=== PATIENT | female | born 2000 | race Caucasian/White ===

== ENCOUNTER 2022-10-15 10:24 | Emergency (ER) | payer MEDICAID, SELFPAY ==
--- NOTE | ~2022-10-15 | US_ITS ---
EXAMINATION: US appendix CLINICAL INFORMATION: Right lower quadrant pain COMPARISON: None TECHNIQUE: Transabdominal grayscale and color views of the right lower quadrant were obtained. FINDINGS: The appendix was not identified sonographically. No free fluid or right lower quadrant inflammatory changes. The right ovary measures 3.8 x 2.9 x 3.1 cm with arterial and venous flow present and is remarkable for a 3.4 x 2.6 x 2.4 cm simple unilocular right ovarian cyst. US/US appendix IMPRESSION: The appendix was not identified sonographically. No free fluid or right lower quadrant inflammatory changes identified. Consider further evaluation with contrast-enhanced CT abdomen pelvis. The right ovary is remarkable for a 3.4 cm simple unilocular right ovarian cyst, no follow-up imaging recommended.
[2022-10-15 10:32] VITALS: BP 123/70; PULSE 85; RESP 16; TEMP 36.9; O2SAT 100; BMI 35.4
[2022-10-15 10:47] VITALS: BP 124/73; PULSE 78; TEMP 37.1; O2SAT 100
--- NOTE | 2022-10-15 11:05 | ED_ITS ---
HPI - Abdominal Pain General Chief Complaint: Abdominal Pain Stated Complaint: r side pain Time Seen by Provider: 10/15/22 10:36 Source: patient Mode of arrival: ambulatory Limitations: no limitations History of Present Illness HPI narrative: 21-year-old female with a significant past medical history of Von Willebrand disease presents to the emergency department today with complaints of right- sided sharp pain beginning this morning. She states she felt pain in the RLQ of her abdomen and went into the bathroom to have a BM. She states she only passed gas as she no longer had the sensation to move her bowels. The pain worsened while sitting on the toilet and she felt as if she were going to pass out. She removed herself off the toilet and sat on the ground and the sensation passed. She denies any and feeling as if she was going to pass out. She is sexually active with one partner and uses a control patch. Her LMP was 3 weeks ago in August. She denies any known illness or sick contacts. She denies any vaginal bleeding or discharge, dysuria, or cloudy/odorous urine. She denies any nausea, vomiting, diarrhea, constipation, shortness of breath, chest pain, headache, or vision changes. MD elicited complaint: abdominal pain Pertinent past history: none Onset (ago): hour(s) Pain Consistency: intermittent Location: RLQ Severity: moderate Quality: sharp Radiation: none Migration to: no migration Exacerbating factors: nothing and movement Relieving factors: rest Associated symptoms: denies other symptoms Related Data Hx Last Menstrual Period: 3 weeks ago per patient Allergies Allergy/AdvReac Type Severity Reaction Status Date / Time NSAIDS (Non-Steroidal AdvReac Unknown Verified 10/15/22 10:31 Anti-Inflamma Review of Systems Review of Systems In addition to documented HPI above, the additional ROS was obtained: Constitutional: No Weight loss, No Fever, No Chills ENT/Mouth: No Ear Pain, No Nasal Congestion, No Sinus Pain, No Hoarseness, No sore throat, No Rhinorrhea, No Swallowing Difficulty Cardiovascular: No Chest Pain, No SOB Respiratory: No Cough, No Sputum, No Wheezing Gastrointestinal: No Nausea, No Vomiting, No Diarrhea, No Constipation Genitourinary: No Dysuria, No Urinary Frequency, No Hematuria, No Urinary Incontinence/retention, No Urgency, No Flank Pain Musculoskeletal: No joint pain, No Myalgias, No Joint Swelling Skin: No Skin Lesions, No rash Neuro: No Weakness, No Numbness, No Paresthesias Yes all other systems are reviewed and are negative [facility] Past Medical History Attestation statement: The following information was validated with the patient. Source: old records reviewed and obtained from family : 1 Para: 1 Total number of abortions (spontaneous and elective): 0 Hx Last Menstrual Period: 3 weeks ago per patient Social History Social History Smoked in Last 30 Days: No Use of substances other than those prescribed or required for medical reasons: No Advance Directives: No Advance Directives Information Provided: No Patient : No Physical Exam ED Vital Signs: Vital Signs - 24 hr 10/15/22 10:32 10/15/22 10:47 10/15/22 13:28 Temperature 98.4 F 98.7 F 98.7 F Pulse Rate 85 78 80 Respiratory Rate 16 Blood Pressure 123/70 124/73 128/77 Pulse Oximetry 100 100 100 Oxygen Delivery Method Room Air Room Air Room Air BMI result Body Mass Index 35.4 Nursing notes and vital signs reviewed. GENERAL APPEARANCE: A&0 x 4, generally well appearing, no acute distress HENMT: Normal to inspection, atraumatic, face symmetrical. Normal external ears, nose, and oropharynx clear. EYE: PERRLA, EOM intact, structures appear normal NECK: Supple without lymphadenopathy. No stiffness or restricted ROM. CHEST: Normal to inspection HEART: Normal rate and regular rhythm, normal S1/S2, no M/R/G LUNGS: LS CTA, moving air well. Able to speak in complete sentences. No crackles, wheezes, or rhonchi auscultated ABDOMEN: Soft, nontender, nondistended. Normal bowel sounds noted BACK: No CVAT, no obvious deformity EXTREMITIES: Moving all extremities without difficulty. No cyanosis, clubbing, or edema. Normal capillary refill. NEUROLOGICAL: Alert and oriented, moving all 4 extremities with equal strength. CN not formally tested but appearing grossly intact. Observed to ambulate with normal gait. Cognition normal SKIN: Warm and dry without any lesions, rash, or visible sores PSYCH: Cooperative, normal affect, normal thought process Course Course Course Narrative: 1115: Plan for labs, UA, Upreg, and US abdomen to rule out/in appendicitis, ovarian cyst/torsion or other intra-abdominal pathology Medical Decision Making Medical Decision Making [facility] Narrative: 21-year-old female with a significant past medical history of Von Willebrand disease presents to the emergency department today with complaints of right- sided sharp pain beginning this morning. Right lower quadrant ultrasound showing no signs of appendicitis, no free fluid or inflammatory changes, and right ovary remarkable for a simple ovarian cyst with no follow-up imaging recommended. Blood work showing increased WBC count most likely due to ovarian cyst. UA with WBC and epithelials most likely related to poor prep for clean- catch, will wait for culture. Urine negative for . History, physical, and diagsnostics consistent for right lower quad abdominal pain likely due to ovarian cyst. Low suspicion for appendicitis, ectopic , SBO, hydronephrosis, cystitis. Patient is safe for discharge at this time with plan to discomfort with [id number] Tylenol and/or NSAIDs such as ibuprofen or naproxen. HPI, PE, diagnostics, and plan discussed with patient and family with no unanswered questions at this time. Patient educated to return to the emergency department with new, worsening, or concerning emergent symptoms. Recommended to follow-up with her primary care provider for further treatment and management. *Refer to Course for additional information on consultations, diagnostic inte rpretation, consultations, emergency department stay, conversations with patient and family, shared decision making with patient, and more information on medical decision making* Lab Data [facility] Lab Attestation statement: I reviewed the patient's lab results. 10/15/22 11:28 10/15/22 11:28 Labs: Lab Results 10/15/22 10/15/22 10/15/22 Range/Units 11:28 11:28 11:28 WBC 14.0 H (4.8-10.8) X10*3/uL RBC 4.43 (4.20-5.50) X10*6/uL Hgb 13.2 (12.0-16.0) g/dl Hct 38.9 (37.0-47.0) % MCV 87.8 (80.0-98.0) fL MCH 29.8 (27.0-33.0) pg MCHC 33.9 (31.0-35.0) g/dl RDW 12.6 (11.0-16.0) % Plt Count 299 (160-400) X10*3/uL MPV 9.7 (9.4-12.3) fL Immature Gran % (Auto) 0.4 (0.0-0.4) % Neut % (Auto) 83.0 H (45-73) % Lymph % (Auto) 12.1 L (20-40) % [place] % (Auto) 3.5 (2-11) % Eos % (Auto) 0.6 (0-4) % Baso % (Auto) 0.4 (0-2) % Lymph # (Auto) 1.7 (1.2-4.9) X10*3/uL [place] # (Auto) 0.5 (0.1-1.2) X10*3/uL Eos # (Auto) 0.1 (0.0-0.4) X10*3/uL Baso # (Auto) 0.1 (0.0-0.2) X10*3/uL Abs Immat Gran (auto) 0.05 H (0.00-0.03) X10*3/uL Absolute Neuts (auto) 11.6 H (2.0-8.3) x10*3/uL Absolute Nucleated RBC 0.000 (0.0-0.012) X10*3/uL Nucleated RBC % (auto) 0.0 (0.0-0.2) /100WBC Sodium 138 (135-145) mmol/L Potassium 4.6 (3.3-5.1) mmol/L Chloride 105 (96-108) mmol/L Carbon Dioxide 23 (22-29) mmol/L Anion Gap 15 (12-20) BUN 10 (9-16) mg/dL Creatinine 0.76 (0.5-1.4) mg/dL Estim Creat Clear Calc 123.1 Estimated GFR > 60 Random Glucose 93 (60-115) mg/dL Calcium 9.2 (8.4-10.2) mg/dL Magnesium 1.7 (1.6-2.6) mg/dL Total Bilirubin 0.3 (0.0-1.0) mg/dL AST 15 (5-31) U/L ALT 12 (0-31) U/L Alkaline Phosphatase 63 (39-117) U/L Total Protein 7.1 (6.5-8.0) g/dL Albumin 3.8 (3.5-5.0) g/dL Urine Color Yellow Urine Appearance Cloudy Urine pH 5.5 (5.0-9.0) Ur Specific [place] 1.025 (1.005-1.025) Urine Protein Negative (Neg-Trace) mg/dL Urine Glucose (UA) Negative (Negative) mg/dL Urine Ketones Negative (Negative) mg/dL Urine Blood Negative (Negative) Urine Nitrite Negative (Negative) Ur Leukocyte Esterase Small (1+) H (Negative) Urine RBC 0-2 (0-2) /HPF Urine WBC 11-20 H (0-5) /HPF Ur Squamous Epith Cells 11-20 (0-2) /HPF Urine Bacteria 1+ (None Seen) Hyaline Casts 0-2 (0-2) /LPF Urine Test (NEGATIVE) 10/15/22 Range/Units 11:28 WBC (4.8-10.8) X10*3/uL RBC (4.20-5.50) X10*6/uL Hgb (12.0-16.0) g/dl Hct (37.0-47.0) % MCV (80.0-98.0) fL MCH (27.0-33.0) pg MCHC (31.0-35.0) g/dl RDW (11.0-16.0) % Plt Count (160-400) X10*3/uL MPV (9.4-12.3) fL Immature Gran % (Auto) (0.0-0.4) % Neut % (Auto) (45-73) % Lymph % (Auto) (20-40) % [place] % (Auto) (2-11) % Eos % (Auto) (0-4) % Baso % (Auto) (0-2) % Lymph # (Auto) (1.2-4.9) X10*3/uL [place] # (Auto) (0.1-1.2) X10*3/uL Eos # (Auto) (0.0-0.4) X10*3/uL Baso # (Auto) (0.0-0.2) X10*3/uL Abs Immat Gran (auto) (0.00-0.03) X10*3/uL Absolute Neuts (auto) (2.0-8.3) x10*3/uL Absolute Nucleated RBC (0.0-0.012) X10*3/uL Nucleated RBC % (auto) (0.0-0.2) /100WBC Sodium (135-145) mmol/L Potassium (3.3-5.1) mmol/L Chloride (96-108) mmol/L Carbon Dioxide (22-29) mmol/L Anion Gap (12-20) BUN (9-16) mg/dL Creatinine (0.5-1.4) mg/dL Estim Creat Clear Calc Estimated GFR Random Glucose (60-115) mg/dL Calcium (8.4-10.2) mg/dL Magnesium (1.6-2.6) mg/dL Total Bilirubin (0.0-1.0) mg/dL AST (5-31) U/L ALT (0-31) U/L Alkaline Phosphatase (39-117) U/L Total Protein (6.5-8.0) g/dL Albumin (3.5-5.0) g/dL Urine Color Urine Appearance Urine pH (5.0-9.0) Ur Specific [place] (1.005-1.025) Urine Protein (Neg-Trace) mg/dL Urine Glucose (UA) (Negative) mg/dL Urine Ketones (Negative) mg/dL Urine Blood (Negative) Urine Nitrite (Negative) Ur Leukocyte Esterase (Negative) Urine RBC (0-2) /HPF Urine WBC (0-5) /HPF Ur Squamous Epith Cells (0-2) /HPF Urine Bacteria (None Seen) Hyaline Casts (0-2) /LPF Urine Test NEGATIVE (NEGATIVE) Independent Interpretation I performed an independent interpretation of an: Ultrasound Interpretation: I have independently reviewed the ultrasound showing no signs of appendicitis, no free fluid or inflammatory changes. Right ovary remarkable for simple ovar art cyst with no follow-up imaging recommended. EXAMINATION: US appendix CLINICAL INFORMATION: Right lower quadrant pain? COMPARISON: None? TECHNIQUE: Transabdominal grayscale and color views of the right lower quadrant were obtained.? FINDINGS: The appendix was not identified sonographically. No free fluid or right lower quadrant inflammatory changes. The right ovary measures 3.8 x 2.9 x 3.1 cm with arterial and venous flow present and is remarkable for a 3.4 x 2.6 x 2.4 cm simple unilocular right ovarian cyst.? US/US appendix IMPRESSION: The appendix was not identified sonographically. No free fluid or right lower quadrant inflammatory changes identified. Consider further evaluation with contrast-enhanced CT abdomen pelvis. ? The right ovary is remarkable for a 3.4 cm simple unilocular right ovarian cyst, no follow-up imaging recommended.? Dictated By: Lien Hilliard MD Signed By: <Electronically signed by Lien Hilliard MD in OV> 10/15/22 1237 DD/ 1145 TD/TT:? Search Engine Marketing Specialist: Discharge Plan Discharge Clinical Impression: Right lower quadrant abdominal pain Patient Disposition: Home, Self-Care Instructions: Ovarian Cyst (ED), Abdominal Pain (ED) Additional Instructions: your ultrasound does not show evidence of appendicitis. Your right ovary shows a simple right ovarian cyst that does not need any care or treatment at this alycia e. Please follow-up with your packing checker provider for further management of this cyst You may manage her discomfort with [id number] Tylenol and/or NSAIDs such as ibuprofen or naproxen. Please return to the emergency department with new, worsening, or concerning emergent symptoms. Please follow-up with your primary care provider in 2-3 days. Stand Alone Forms: Work/School Release Print Language: Hungarian
[2022-10-15 11:34] LABS: Basophils Absolute Auto 0.1 X10*3/uL (0.0-0.2); Basophils Percent Auto 0.4 % (0-2); Eosinophils Absolute Auto 0.1 X10*3/uL (0.0-0.4); Eosinophils Percent Auto 0.6 % (0-4); Hematocrit 38.9 % (37.0-47.0); Hemoglobin 13.2 g/dl (12.0-16.0); Imm Gran Abs Auto 0.05 X10*3/uL (0.00-0.03); Imm Gran Pct Auto 0.4 % (0.0-0.4); Lymphocytes Absolute Auto 1.7 X10*3/uL (1.2-4.9); Lymphocytes Percent Auto 12.1 % (20-40); MANUAL DIFF FLAG NO; Mean Corpuscular HGB Conc 33.9 g/dl (31.0-35.0); Mean Corpuscular Hemoglobin 29.8 pg (27.0-33.0); Mean Corpuscular Volume 87.8 fL (80.0-98.0); Mean Platelet Volume 9.7 fL (9.4-12.3); Monocytes Absolute Auto 0.5 X10*3/uL (0.1-1.2); Monocytes Percent Auto 3.5 % (2-11); Neutrophils Absolute Auto 11.6 x10*3/uL (2.0-8.3); Platelet Count 299 X10*3/uL (160-400); Red Blood Count 4.43 X10*6/uL (4.20-5.50); Red Cell Distribution Width 12.6 % (11.0-16.0)
[2022-10-15 11:36] LABS: Appearance Urine Cloudy; Color Urine Yellow; Glucose Urine UA Negative (Negative); Leukocyte Esterase Urine Small (1+) (Negative); Nitrite Urine Negative (Negative); PH 5.5 (5.0-9.0); Specific Gravity - Urine 1.025 (1.005-1.025); UMIC TRIGGER UACC YES; Urine Blood Negative (Negative); Urine Ketones Negative (Negative); Urine Protein Negative (Neg-Trace)
[2022-10-15 11:38] LABS: UPreg QC Valid YES; Urine Pregnancy NEGATIVE (NEGATIVE)
[2022-10-15 11:46] LABS: Bacteria Urine 1+ (None Seen); Hyaline Casts Urine 0-2 /LPF (0-2); RBC Urine 0-2 /HPF (0-2); UACC Culture Trigger YES
[2022-10-15 11:52] LABS: Alanine Aminotransferase 12 U/L (0-31); Albumin Level 3.8 g/dL (3.5-5.0); Alkaline Phosphatase 63 U/L (39-117); Anion Gap 15 (12-20); Aspartate Amino Transferase 15 U/L (5-31); Bilirubin Total 0.3 mg/dL (0.0-1.0); Blood Urea Nitrogen 10 mg/dL (9-16); Calcium 9.2 mg/dL (8.4-10.2); Carbon Dioxide 23 mmol/L (22-29); Chloride 105 mmol/L (96-108); Creatinine Clr Calc Pharmacy 123.1; Estimated Glomerular Filt Rate > 60; Glucose Random 93 mg/dL (60-115); Magnesium 1.7 mg/dL (1.6-2.6); Potassium 4.6 mmol/L (3.3-5.1); Sodium 138 mmol/L (135-145); Total Protein 7.1 g/dL (6.5-8.0)
[2022-10-15 13:28] VITALS: BP 128/77; PULSE 80; TEMP 37.1; O2SAT 100
== END 2022-10-15 13:37 | disposition home or self-care (01) ==
PROVIDERS: Nurse Practitioner Family; Emergency Provider Emergency Medicine; PCP Pediatrics
DX: N83.291 Other ovarian cyst, right side (principal); R10.31 Right lower quadrant pain
CPT/HCPCS: 36415; 76705; 80053; 81001; 81025; 83735; 85025; 87086; 99284